=== PATIENT | male | born 1950 | race African-American/Black ===

== ENCOUNTER 2022-06-29 09:52 | Emergency (ER) | payer OTHER ==
[~2022-06-29] VITALS: Ht 180.3 cm; Wt 92.0 kg
[2022-06-29 12:42] LABS: BASOPHILS % 0.6 % (0.0-2.0); EOSINOPHILS % 1.7 % (0.0-5.0); HEMATOCRIT. 41.4 % (42.0-52.0); HEMOGLOBIN. 13.8 g/dL (14.0-18.0); LYMPHOCYTES % 20.2 % (20.0-50.0); MEAN CORPUSCULAR HEMOGLOBIN 28.1 pg (28.0-32.0); MEAN CORPUSCULAR VOLUME 84.4 fL (80.0-94.0); MEAN PLATELET VOLUME 9.1 fl (7.4-10.4); MONOCYTES % 9.2 % (2.0-8.0); NEUTROPHILS % 68.3 % (40.0-76.0); PLATELET 142 x1000/uL (130-400); RED BLOOD CELL COUNT 4.91 mill/uL (4.7-6.1); RED CELL DISTRIBUTION WIDTH 15.7 % (11.6-14.6)
[2022-06-29 12:45] LABS: CHLORIDE 107 mEq/L (98-107)
[2022-06-29 12:56] LABS: D-DIMER 14.3 mg/L FEU (<0.50); INR 1.1; PROTHROMBIN TIME 11.6 sec (9.6-11.0)
[2022-06-29] MEDS ORDERED: XAR15 MT (13:57)
[2022-06-29] MEDS ORDERED: ENOXAPARIN 80MG/0.8ML SYR SUBCUT ONE (14:00)
[2022-06-29 14:20] VITALS: BP 107/65
== END 2022-06-29 14:49 | disposition home or self-care (01) ==
LOC: ER 09:52
DX: I82.90 Acute embolism and thrombosis of unspecified vein (principal); I10 Essential (primary) hypertension; E78.00 Pure hypercholesterolemia, unspecified; E11.9 Type 2 diabetes mellitus without complications
CPT/HCPCS: 36415; 80053; 85025; 85379; 85610; 93971; 96372; 99284; J1650

== ENCOUNTER 2024-02-09 19:11 | Emergency (ER) | payer OTHER ==
[~2024-02-09] VITALS: Ht 177.8 cm; Wt 81.0 kg
[~2024-02-09 19:11] MED LIST: XAR15 MT
[2024-02-09 19:17] VITALS: BP 162/88; PULSE 82; RESP 20; TEMP 97.7; O2SAT 100
[2024-02-09] MEDS ORDERED: TETANUS, DIPHTHERIA, PERTUSSIS VAC/PF 0.5ML (>10YR OLD) IM ONE (19:45)
[2024-02-09] MEDS ORDERED: IBUPROFEN 600MG TABLET PO ONE (19:45)
[2024-02-09] MEDS ORDERED: BACITRACIN ZINC OINT UDPKT TOP ONE (19:45)
[2024-02-09] MEDS ORDERED: LIDOCAINE HCL/PF 1% 10 MG/ML 5ML VIAL INFIL ONE (19:45)
[2024-02-09] MEDS ORDERED: IBUPROFEN 600MG TABLET PO NR (22:00)
[2024-02-09] MEDS ORDERED: BO1 TP (22:20)
[2024-02-09] MEDS ORDERED: AMOX1TAB16 MT (22:20)
[2024-02-09] MEDS ORDERED: ACET-2708 MT (22:20)
[2024-02-09] MEDS: ACETAMINOPHEN 325MG TABLET PO ONE (22:41)
[2024-02-09] MEDS: TETANUS, DIPHTHERIA, PERTUSSIS VAC/PF 0.5ML (>10YR OLD) IM ONE (22:42)
[2024-02-09] MEDS: LIDOCAINE HCL/PF 1% 10 MG/ML 5ML VIAL INFIL NR (22:45)
[2024-02-09] MEDS: BACITRACIN ZINC OINT UDPKT TOP NR (22:45)
== END 2024-02-09 22:48 | disposition home or self-care (01) ==
LOC: ER 19:11
DX: S41.112A Laceration without foreign body of left upper arm, initial encounter (principal); I82.401 Acute embolism and thrombosis of unspecified deep veins of right lower extremity; I10 Essential (primary) hypertension; E78.00 Pure hypercholesterolemia, unspecified; E11.9 Type 2 diabetes mellitus without complications; Z79.01 Long term (current) use of anticoagulants; W54.0XXA Bitten by dog, initial encounter; Y93.89 Activity, other specified; Y92.89 Other specified places as the place of occurrence of the external cause; Y99.8 Other external cause status
CPT/HCPCS: 99283; 90715; 12002; 90471; J3490

== ENCOUNTER 2024-02-11 08:27 | Emergency (ER) | payer OTHER ==
[~2024-02-11] VITALS: Ht 180.3 cm; Wt 91.2 kg
[~2024-02-11 08:27] MED LIST changes: +ACET-2708 MT; +AMOX1TAB16 MT; +BO1 TP
[2024-02-11 08:30] VITALS: O2SAT 97
[2024-02-11] MEDS: BACITRACIN ZINC OINT UDPKT TOP ONE (08:45)
[2024-02-11 08:53] VITALS: BP 123/74; PULSE 70; RESP 18; TEMP 98.7
== END 2024-02-11 09:02 | disposition home or self-care (01) ==
LOC: ER 08:27
DX: S41.152A Open bite of left upper arm, initial encounter (principal); I10 Essential (primary) hypertension; E78.00 Pure hypercholesterolemia, unspecified; E11.9 Type 2 diabetes mellitus without complications; W54.0XXA Bitten by dog, initial encounter; Y93.89 Activity, other specified; Y92.89 Other specified places as the place of occurrence of the external cause; Y99.8 Other external cause status
CPT/HCPCS: 99282

== ENCOUNTER 2024-02-17 08:03 | Emergency (ER) | payer OTHER ==
[~2024-02-17] VITALS: Ht 177.8 cm; Wt 91.0 kg
[2024-02-17 08:09] VITALS: O2SAT 100
[2024-02-17 09:07] VITALS: BP 129/77; PULSE 73; RESP 18; TEMP 98.1
== END 2024-02-17 10:35 | disposition home or self-care (01) ==
LOC: ER 08:03
DX: Z48.02 Encounter for removal of sutures (principal); E11.9 Type 2 diabetes mellitus without complications; E78.00 Pure hypercholesterolemia, unspecified; I10 Essential (primary) hypertension; I82.409 Acute embolism and thrombosis of unspecified deep veins of unspecified lower extremity; F19.90 Other psychoactive substance use, unspecified, uncomplicated; Z85.9 Personal history of malignant neoplasm, unspecified
CPT/HCPCS: 99281